=== PATIENT | female | born 1945 | race Caucasian/White ===

== ENCOUNTER 2021-12-16 07:14 | Day surgery (SDC) | payer OTHER ==
[~2021-12-16] VITALS: Ht 152.4 cm; Wt 79.4 kg
[2021-12-16] MEDS ORDERED: fentaNYL citrate 0.05 MG/ML VIAL ONE (09:25)
[2021-12-16] MEDS ORDERED: MIDAZOLAM 5 MG/5 ML VIAL ONE (09:25)
== END 2021-12-16 11:40 | disposition home or self-care (01) ==
LOC: MOR 07:14 → MMU 07:15 → MOR 11:40
PROVIDERS: ATTEND Internal Medicine Gastroenterology
DX: R19.5 Other fecal abnormalities (principal); I10 Essential (primary) hypertension; Z79.82 Long term (current) use of aspirin; Z79.899 Other long term (current) drug therapy; Z20.822 Contact with and (suspected) exposure to COVID-19
CPT/HCPCS: 45378; 87426; J3010; J2250